=== PATIENT | female | born 1945 | race Caucasian/White ===

== ENCOUNTER 2018-05-10 18:39 | Emergency (ER) | payer MEDICARE, OTHER ==
--- NOTE | 2018-05-10 18:55 | ER Document Report ---
ED Medical Screen (RME) - General Chief Complaint: Skin Problem Stated Complaint: LEFT FOOT PAIN Time Seen by Provider: 05/10/18 18:51 TRAVEL OUTSIDE OF THE [place] IN LAST 30 DAYS: No - HPI Notes: 05/10/18 18:55 Greater toe effusion 2018 at [facility] now with hardware showing through skin looks to be infected with erosion - Related Data Allergies/Adverse Reactions: azathioprine [From Imuran] Allergy (Verified 05/10/18 18:46) infliximab [From Remicade] Allergy (Verified 05/10/18 18:46) Physical Exam - Vital signs Vitals: Temp Pulse Resp BP Pulse Ox 97.7 F 83 16 169/57 H 100 05/10/18 18:49 05/10/18 18:49 05/10/18 18:49 05/10/18 18:49 05/10/18 18:49 Course - Vital Signs Vital signs: Temp Pulse Resp BP Pulse Ox 97.7 F 83 16 169/57 H 100 05/10/18 18:49 05/10/18 18:49 05/10/18 18:49 05/10/18 18:49 05/10/18 18:49
[2018-05-10] MEDS ORDERED: CEFTRIAXONE 1 GM/D5W RTU 1 GM/50 ML RTUPB IV ONE (20:00)
--- NOTE | 2018-05-10 20:28 | RADIOLOGY REPORT (SQ) ---
2 VIEWS OF THE LEFT FOOT HISTORY: Skin infection. COMPARISON: None. FINDINGS: Diffuse soft tissue swelling of the left foot is noted. Prior first MTP arthrodesis with hardware grossly intact. Generalized osteopenia is present, which limits evaluation. There are degenerative changes throughout the forefoot, greatest along the second-fifth MTP joints as well as the interphalangeal joints. Pes planus is present. IMPRESSION: 1. Prior first MTP arthrodesis with hardware intact. 2. No radiographic evidence of osteomyelitis. If there is high clinical concern, consider MRI or bone scintigraphy for further evaluation.
[2018-05-10] MEDS ORDERED: HYDROMORPHONE HCL INJ/PF 2 MG/ML AMPULE IV ONE (20:33)
[2018-05-10] MEDS ORDERED: ONDANSETRON HCL INJ/PF 4 MG/2 ML SDV IV ONE (20:33)
[2018-05-10] MEDS ORDERED: VANCOMYCIN HCL INJ 1000 MG VIAL IV ONE (20:45)
--- NOTE | 2018-05-10 20:45 | ER Document Report ---
ED Extremity Problem, Lower - General Chief Complaint: Skin Problem Stated Complaint: LEFT FOOT PAIN Time Seen by Provider: 05/10/18 18:51 Notes: Patient is a 73-year-old female that comes to the emergency department for chief complaint of pain, redness, drainage, foul smell, and now visualized hardware in her left great toe. She had surgery on her foot for straightening of the bone secondary to degenerative breakdown from rheumatoid arthritis on January 03, 2018 at [facility], states he follows with orthopedic surgeon Dr. Ramos. She states she has had the wound checked and rechecked several times, was told to put wet-to-dry dressings on the area. She is not a diabetic. Past medical history includes hypertension, gastroparesis, hypothyroidism. TRAVEL OUTSIDE OF THE [place] IN LAST 30 DAYS: No - Related Data Allergies/Adverse Reactions: azathioprine [From Imuran] Allergy (Verified 05/10/18 18:46) infliximab [From Remicade] Allergy (Verified 05/10/18 18:46) Past Medical History - General Information source: Patient - Social History Smoking Status: Never Smoker Frequency of alcohol use: Occasional Drug Abuse: None Lives with: Family Family History: Reviewed & Not Pertinent Patient has suicidal ideation: No Patient has homicidal ideation: No - Past Medical History Cardiac Medical History: Reports: Hx Hypercholesterolemia, Hx Hypertension Renal/ Medical History: Denies: Hx Peritoneal Dialysis Musculoskeletal Medical History: Reports Hx Arthritis - RA Past Surgical History: Reports: Hx Abdominal Surgery - COLON RESECTION, TUMMY TUCK, Hx Cholecystectomy, Hx Hysterectomy, Hx Orthopedic Surgery - LEFT FOOT, B/L HANDS, RIGHT FOOT Review of Systems - Review of Systems Constitutional: No symptoms reported EENT: No symptoms reported Cardiovascular: No symptoms reported Respiratory: No symptoms reported Gastrointestinal: No symptoms reported Genitourinary: No symptoms reported Female Genitourinary: No symptoms reported Musculoskeletal: See HPI Skin: See HPI Hematologic/Lymphatic: No symptoms reported Neurological/Psychological: No symptoms reported Physical Exam - Vital signs Vitals: Temp Pulse Resp BP Pulse Ox 97.7 F 83 16 169/57 H 100 05/10/18 18:49 05/10/18 18:49 05/10/18 18:49 05/10/18 18:49 05/10/18 18:49 - Notes Notes: GENERAL: Alert, interacts well. No acute distress. HEAD: Normocephalic, atraumatic. EYES: Pupils equal, round, and reactive to light. Extraocular movements intact. ENT: Oral mucosa moist, tongue midline. Oropharynx unremarkable. Airway patent. Nares patent, no nasal septal hematoma, TM's intact. NECK: Full range of motion. Supple. Trachea midline. LUNGS: Clear to auscultation bilaterally, no wheezes, rales, or rhonchi. No respiratory distress. HEART: Regular rate and rhythm. No murmur ABDOMEN: Soft, non-tender. Non-distended. Bowel sounds present in all 4 quadrants. GENITOURINARY: Deferred EXTREMITIES: Left lower extremity showing old wound with oval shaped area of wound dehiscence at the MTP extending up the toe of the left great toe, purulence noted, tender surrounding tissue with erythema spreading up to the top of the foot, dehisced area is deep and I can see hardware including a plate and screw. Normal ankle, leg exam otherwise. Normal extremities otherwise. BACK: no cervical, thoracic, lumbar midline tenderness. No saddle anesthesia, normal distal neurovascular exam. NEUROLOGICAL: Alert and oriented x3. Normal speech. [cranial nerves II through XII grossly intact]. PSYCH: Normal affect, normal mood. SKIN: Warm, dry, normal turgor. No rashes or lesions noted. Course - Re-evaluation Re-evalutation: Visible hardware in the dorsal aspect of the left great toe with what appears to be infected wound, tissue dehiscence, concern for possible osteomyelitis. CBC unremarkable except for microcytic anemia. Chemistry generally unremarkable. ESR is elevated at 98, CRP is elevated at 65. X-ray generally unremarkable without gas. Given Rocephin along with vancomycin for the wound infection. Patient is not a diabetic therefore Pseudomonas coverage will not be added at this time. 05/10/18 22:00 Call placed to [facility] where patient's orthopedic surgeon is located and where patient had the surgery. 05/10/18 23:15 I contacted the transfer center again, they called me back shortly after this, they state that Dr. Fermín Garrido will be accepting the patient in transfer. I discussed this with patient, she states understanding and agreement with plan. She is much more comfortable after pain medication. She is asking for her nighttime medications of blood pressure be ordered, this was ordered. 05/11/18 04:40 Patient without significant change with re-evaluations. Sleeping comfortable, no additional concerns at this time. 05/11/18 07:05 Introduced to Jann Mathur at bedside. Still pending bed assignment. - Vital Signs Vital signs: Temp Pulse Resp BP Pulse Ox 97.7 F 68 18 130/43 H 97 05/10/18 18:49 05/11/18 02:42 05/11/18 06:02 05/11/18 06:02 05/11/18 07:01 - Laboratory Result Diagrams: 05/10/18 20:40 05/10/18 20:40 Laboratory results interpreted by me: 05/10/18 05/10/18 20:40 20:40 Hgb 9.9 L Hct 30.6 L MCV 78 L MCH 25.2 L RDW 16.1 H Eosinophils % 11.0 H Absolute Eosinophils 0.8 H ESR 98 H Sodium 135.2 L Alkaline Phosphatase 161 H C-Reactive Protein 64.6 H Albumin 3.3 L Discharge - Discharge Clinical Impression: Left foot infection Hardware complicating wound infection Qualifiers: Encounter type: initial encounter Qualified Code(s): T84.7XXA - Infection and inflammatory reaction due to other internal orthopedic prosthetic devices, implants and grafts, initial encounter Cellulitis Qualifiers: Site of cellulitis: extremity Site of cellulitis of extremity: lower extremity Laterality: left Qualified Code(s): L03.116 - Cellulitis of left lower limb Condition: Stable Disposition: [facility]
[2018-05-10 21:01] LABS: ABSOLUTE EOSINOPHILS # (AUTO) 0.8 10^3/uL (0.0-0.6); ABSOLUTE LYMPHOCYTES (AUTO) 1.5 10^3/uL (0.5-4.7); ABSOLUTE MONOCYTES (AUTO) 0.4 10^3/uL (0.1-1.4); ABSOLUTE NEUT (AUTO) 4.2 10^3/uL (1.7-8.2); BASOPHILS % (AUTO) 0.3 % (0-2); HEMATOCRIT 30.6 % (36.0-47.0); HEMOGLOBIN 9.9 g/dL (12.0-15.5); LYMPHOCYTES % (AUTO) 22.1 % (13-45); MEAN CORPUSCULAR HEMOGLOBIN 25.2 pg (27.0-33.4); MEAN CORPUSCULAR HGB CONC 32.4 g/dL (32.0-36.0); MEAN CORPUSCULAR VOLUME 78 fl (80-97); MONOCYTES % (AUTO) 5.2 % (3-13); PLATELET COUNT 262 10^3/uL (150-450); RED BLOOD COUNT 3.94 10^6/uL (3.72-5.28); RED CELL DISTRIBUTION WIDTH 16.1 % (11.5-14.0); SEGMENTED NEUTROPHILS % (AUTO) 61.4 % (42-78); TOTAL CELLS COUNTED % (AUTO) 100 %; WHITE BLOOD COUNT 6.8 10^3/uL (4.0-10.5)
[2018-05-10 21:24] LABS: ALANINE AMINOTRANSFERASE 16 U/L (9-52); ALBUMIN 3.3 g/dL (3.5-5.0); ALKALINE PHOSPHATASE 161 U/L (38-126); ANION GAP 10 (5-19); ASPARTATE AMINO TRANSFERASE 28 U/L (14-36); BILIRUBIN,DIRECT 0.2 mg/dL (0.0-0.4); BILIRUBIN,TOTAL 0.4 mg/dL (0.2-1.3); BLOOD UREA NITROGEN 12 mg/dL (7-20); C-REACTIVE PROTEIN 64.6 mg/L (<10.0); CALCIUM 8.7 mg/dL (8.4-10.2); CARBON DIOXIDE 24 mmol/L (22-30); CHLORIDE 101 mmol/L (98-107); GLUCOSE 100 mg/dL (75-110); POTASSIUM 4.3 mmol/L (3.6-5.0); SODIUM 135.2 mmol/L (137-145); TOTAL PROTEIN 6.9 g/dL (6.3-8.2)
[2018-05-10 21:41] LABS: ERYTHROCYTE SEDIMENTATION RATE 98 mm/hr (0-30)
[2018-05-10] MEDS ORDERED: BENAZEPRIL HCL 20 MG TABLET PO ONE (23:02)
[2018-05-10] MEDS ORDERED: METOPROLOL TARTRATE 25 MG TABLET PO ONE (23:02)
[2018-05-11] MEDS ORDERED: METOPROLOL TARTRATE 25 MG TABLET ONE (02:15)
[2018-05-11] MEDS ORDERED: BENAZEPRIL HCL 20 MG TABLET ONE (02:30)
[2018-05-11] MEDS ORDERED: LEVOTHYROXINE SODIUM 0.075 MG TABLET PO ONE (07:36)
[2018-05-11] MEDS: HYDROMORPHONE HCL INJ/PF 2 MG/ML AMPULE IV PRN ×3 (07:53→23:08)
[2018-05-11] MEDS: CEFTRIAXONE INJ 1000 MG VIAL IV SCH ×2 (07:55→20:46)
[2018-05-11] MEDS ORDERED: LANSOPRAZOLE 30 MG TAB.RAP.DR PO ONE (09:26)
[2018-05-11] MEDS ORDERED: DICYCLOMINE HCL 20 MG TABLET PO ONE (09:26)
[2018-05-11] MEDS ORDERED: HYDROMORPHONE HCL INJ/PF 2 MG/ML AMPULE IV ONE (20:25)
[2018-05-11] MEDS ORDERED: VANCOMYCIN HCL INJ 1000 MG VIAL IV ONE (20:27)
--- NOTE | 2018-05-11 21:04 | ER Document Report ---
Doctor's Note Notes: 05/11/18 20:00 Evaluated patient at the bedside. Patient currently complaining of pain to her left foot. Will order Dilaudid IV. Patient and family member concerned as patient's foot wound has been open since her arrival yesterday. PCT will place a Telfa to the area. Patient has had IV Rocephin ordered every 12 hours. Will add on vancomycin 1 g IV at this time as it has been approximately 24 hours since last dose. Continue to await bed placement at [place]. Patient and family member updated on plan of care.
[2018-05-11] MEDS ORDERED: METOPROLOL TARTRATE 25 MG TABLET PO ONE (22:50)
[2018-05-12] MEDS: HYDROMORPHONE HCL INJ/PF 2 MG/ML AMPULE IV PRN ×5 (02:29→20:03)
--- NOTE | 2018-05-12 06:26 | ER Document Report ---
Doctor's Note Notes: 05/12/18 06:24 Bedside reevaluation of the patient, patient resting with eyes closed. Vital signs within normal limits on the monitor, heart rate 54, blood pressure 151/49, respiratory rate 16 even and unlabored, pulse ox 96% on room air. There is still no bed placement at [place]. I will place orders for IV vancomycin 1 g every 12 hours, next dose will be due at 10 AM. Bedside handoff will be given to oncoming provider Jann Mathur at 07:00.
[2018-05-12] MEDS ORDERED: VANCOMYCIN HCL INJ 1000 MG VIAL IV SCH ×2 (06:30→10:00)
[2018-05-12] MEDS: CEFTRIAXONE INJ 1000 MG VIAL IV SCH ×2 (08:53→20:04)
--- NOTE | 2018-05-12 10:47 | ER Document Report ---
Doctor's Note Notes: 05/12/18 10:46 Rounds: Chart reviewed and patient interviewed. Patient had surgery on her left foot in December at [place]. Ever since the surgery, there is been an infection in the wound and that she never healed completely. She came here night before last because of hardware in the foot that is now exposed and visible. Patient says that she was on some antibiotic recently that she was able to take for only about 3 days because it made her feel bad. Patient was just seen by her doctors at [place] on Monday. Says that she had some lab work done which sounds like she had blood cultures drawn (drawn from 2 different sites). She had an x-ray of her foot here upon admission to the ED and it did not show anything significant. No osteomyelitis. Patient has normal CBC. She has slightly low sodium. Otherwise labs are unremarkable. Patient has been started on vancomycin and Rocephin. She is being given pain medications as needed. We are awaiting a bed availability at [place]. Patient and family are aware of the situation. Julio César Burch MD
[2018-05-12] MEDS ORDERED: HYDROMORPHONE HCL INJ/PF 2 MG/ML AMPULE IV ONE (12:50)
[2018-05-12] MEDS ORDERED: (PENDING PHARMACY ID) (Benazepril Hcl [Lotensin] 40 MG) PO SCH (18:00)
[2018-05-12] MEDS ORDERED: DICYCLOMINE HCL 20 MG TABLET PO SCH (18:00)
[2018-05-12 20:53] VITALS: BP 169/40
[2018-05-12] MEDS ORDERED: DOXAZOSIN MESYLATE 2 MG TABLET PO SCH (22:00)
[2018-05-12] MEDS ORDERED: (PENDING PHARMACY ID) (Terazosin Hcl [Hytrin] 2 MG) PO SCH (22:00)
[2018-05-12] MEDS ORDERED: TAMSULOSIN HCL 0.4 MG CAP.SR.24H PO SCH (22:00)
[2018-05-12] MEDS ORDERED: BENAZEPRIL HCL 20 MG TABLET PO SCH (22:00)
[2018-05-12] MEDS ORDERED: METOPROLOL TARTRATE 25 MG TABLET PO SCH (22:00)
[2018-05-13] MEDS ORDERED: LANSOPRAZOLE 30 MG TAB.RAP.DR PO SCH (06:00)
[2018-05-13] MEDS ORDERED: LEVOTHYROXINE SODIUM 0.075 MG TABLET PO SCH (06:00)
[2018-05-13] MEDS ORDERED: CETIRIZINE 10 MG TABLET PO SCH (10:00)
== END 2018-05-12 20:54 | disposition short-term general hospital (02) ==
LOC: ER 18:39
DX: T84.7XXA Infection and inflammatory reaction due to other internal orthopedic prosthetic devices, implants and grafts, initial encounter (principal); L03.116 Cellulitis of left lower limb; T81.30XA Disruption of wound, unspecified, initial encounter; Y83.8 Other surgical procedures as the cause of abnormal reaction of the patient, or of later complication, without mention of misadventure at the time of the procedure; M06.9 Rheumatoid arthritis, unspecified; D50.9 Iron deficiency anemia, unspecified; I10 Essential (primary) hypertension; Z98.1 Arthrodesis status; Z88.8 Allergy status to other drugs, medicaments and biological substances; Z75.1 Person awaiting admission to adequate facility elsewhere
CPT/HCPCS: 36591; 96376; 99285; 96361; 96375; 96365; 96366; 96367; 36415; 85025; 85652; 86140; 80053; 73620; A9270 ×5; J1170 ×3; J0696 ×3; J2405; J3370 ×3; J3490